=== PATIENT | female | born 1995 | race Caucasian/White ===

== ENCOUNTER 2023-04-18 09:18 | Inpatient (IN) | payer MEDICAID, OTHER ==
[2023-04-18 09:56] VITALS: BMI 31.1
[2023-04-18] MEDS ORDERED: hydrALAZINE 20 MG/ML VIAL SLOW IVP PRN ×2 (10:08→11:00)
[2023-04-18] MEDS ORDERED: Carboprost 250 MCG/ML AMP IM PRN (11:00)
[2023-04-18] MEDS ORDERED: Docusate 100 MG CAP PO PRN (11:00)
[2023-04-18] MEDS ORDERED: Diphenoxylate HCl/Atropine Tablet PO PRN (11:00)
[2023-04-18] MEDS ORDERED: Misoprostol 200 MCG TAB PR PRN (11:00)
[2023-04-18] MEDS ORDERED: Oxytocin 30 units/NS 500 ML 500 ML IV SCH ×3 (11:00)
[2023-04-18] MEDS ORDERED: Butorphanol Tartrate 1 MG/ML VIAL SLOW IVP PRN (11:00)
[2023-04-18] MEDS ORDERED: Promethazine HCl 25 MG/ML VIAL IM PRN ×2 (11:00→11:48)
[2023-04-18] MEDS ORDERED: Lactated Ringer's 1,000 ML IV SCH (11:00)
[2023-04-18] MEDS ORDERED: Lidocaine 1% (PF) 30 ML VIAL SC PRN (11:00)
[2023-04-18] MEDS ORDERED: fentaNYL 50 mcg/mL 1 mL Vial SLOW IVP PRN (11:00)
[2023-04-18] MEDS ORDERED: Tranexamic Acid 1,000 MG/10 ML VIAL IVP PRN (11:00)
[2023-04-18] MEDS ORDERED: Acetaminophen 500 MG TAB PO PRN (11:00)
[2023-04-18] MEDS ORDERED: Ondansetron PF 4 MG/2 ML Vial IVP PRN ×2 (11:00→11:48)
[2023-04-18 11:41] LABS: Hematocrit 43.2 % (34.9-44.5); Hemoglobin 14.4 g/dL (12.0-15.5); Mean Corpuscular HGB CONC 33.3 g/dL (32.0-36.0); Mean Corpuscular Hemoglobin 31.1 pg (27.0-33.0); Mean Corpuscular Volume 93.3 fl (81.6-98.3); Mean Platelet Volume 10.9 fl (7.4-10.4); Platelet Count 246 10x3/uL (150-450); RBC Distribution Width 13.1 % (11.5-14.5); Red Blood Cell (RBC) Count 4.63 10x6/uL (3.90-5.03); White Blood Cell (WBC) Count 7.8 10x3/uL (3.5-10.5)
[2023-04-18] MEDS ORDERED: ePHEDrine Sulfate 50 MG/10 ML VIAL SLOW IVP PRN (11:48)
[2023-04-18] MEDS ORDERED: Moisturizing Cream (Eucerin) 113 GM JAR TOP PRN (11:48)
[2023-04-18] MEDS ORDERED: Lactated Ringer's 500 ML IV PRN (11:48)
[2023-04-18] MEDS ORDERED: Acetaminophen 325 MG TAB PO PRN (11:48)
[2023-04-18] MEDS ORDERED: diphenhydrAMINE 50 MG/ML VIAL IVP PRN (11:48)
[2023-04-18] MEDS ORDERED: Naloxone HCl 0.4 mg/ml Vial IVP PRN ×2 (11:48)
[2023-04-18] MEDS: fentaNYL/Ropivacaine Epidural 100 ML ONE (11:58)
[2023-04-18] MEDS ORDERED: Communication Order-Pharmacy FS SCH (12:00)
[2023-04-18] MEDS ORDERED: fentaNYL 2 mcg/Ropivacaine 0.2% Epidural 100 ML CADD EPIDURAL SCH (12:00)
[2023-04-18 12:04] LABS: HBSAg Index 0.22 S/CO (0-0.99); Hep B Surf Ag - L&D Non-Reactive S/CO (NonReactive); Syphilis Antibody Nonreactive (Nonreactive); Syphilis Antibody Index 0.03 S/CO (<1.00 Non-Reactive)
[2023-04-18] MEDS: Calcium Carbonate 500 MG ChewTAB PO PRN (14:16)
[2023-04-18] MEDS ORDERED: Boostrix 0.5 ML (Tdap) VIAL (>/=7 yrs of age) IM ONE (15:39)
[2023-04-18] MEDS ORDERED: Bisacodyl 10 MG SUPP PR PRN (15:39)
[2023-04-18] MEDS ORDERED: Milk Of Magnesia 30 ML UDCUP PO PRN (15:39)
[2023-04-18] MEDS ORDERED: Lanolin Ointment 7 GM TUBE TOP PRN (15:39)
[2023-04-18] MEDS: Methylergonovine 0.2 MG/ML VIAL IM PRN (15:42)
[2023-04-18] MEDS: Docusate 100 MG CAP PO SCH (21:26)
[2023-04-18] MEDS: Ibuprofen 800 MG TAB PO PRN (21:26)
[2023-04-19] MEDS: Ibuprofen 800 MG TAB PO SCH (06:31)
[2023-04-19 07:42] VITALS: BP 93/56; TEMP 98.1
[2023-04-19] MEDS: Ferrous Sulfate 325 MG TAB PO SCH (10:13)
[2023-04-19] MEDS: Benzocaine-Menthol 82.5 ML CAN TOP PRN (10:14)
== END 2023-04-19 17:10 | disposition home or self-care (01) | DRG 806 ==
LOC: CSHLD/OP 09:18 → CSHLD 11:00 → CSHPP 18:20
PROVIDERS: ADMIT Emergency Medicine; ATTEND Emergency Medicine
PROC: 10E0XZZ Delivery of Products of Conception, External Approach (ICD-10-PCS; principal; 2023-04-18)
PROC: 10907ZC Drainage of Amniotic Fluid, Therapeutic from Products of Conception, Via Natural or Artificial Opening (ICD-10-PCS; 2023-04-18)
DX: O99.02 Anemia complicating childbirth (principal); O98.82 Other maternal infectious and parasitic diseases complicating childbirth; Z37.0 Single live birth; Z3A.39 39 weeks gestation of pregnancy; D64.9 Anemia, unspecified; B37.32 Chronic candidiasis of vulva and vagina
CPT/HCPCS: 36415; 51702; 85027; 86780; 86850; 86900; 86901; 87340; 99285; J2210